=== PATIENT | female | born 1965 | race Two or more races ===

== ENCOUNTER 2018-05-11 22:23 | Emergency (ER) | payer SELFPAY ==
[~2018-05-11] VITALS: Ht 167.6 cm; Wt 81.6 kg
[2018-05-12] MEDS ORDERED: ONDANSETRON PF 4 MG/2 ML VIAL. IV ONE (00:30)
[2018-05-12] MEDS ORDERED: IV NORMAL SALINE 1000ML BAG 1,000 ML IV ONE (00:30)
[2018-05-12] MEDS ORDERED: KETOROLAC 30 MG/ML VIAL. IV ONE (00:30)
--- NOTE | 2018-05-12 00:47 | PHYS DOC ---
Adult General Chief Complaint Chief Complaint: ABDOMINAL PAIN HPI HPI Patient is a 52 year old female who presents with right upper quadrant tenderness and states that is started today. Patient earlier had corn tortillas with refried beans. Patient does have a history of a cholecystectomy. Patient also states this is exacerbated her headaches which she frequently has. Patient had one episode of vomiting upon arrival in the emergency Department denies any diarrhea. She also denies any chest pain or shortness of breath. Patient has no other acute complaints at this time. Review of Systems Review of Systems Constitutional: Denies fever or chills [] Eyes: Denies change in visual acuity, redness, or eye pain [] HENT: Denies nasal congestion or sore throat [] Respiratory: Denies cough or shortness of breath [] Cardiovascular: No additional information not addressed in HPI [] GI: Positive for abdominal pain, nausea, vomiting, denies bloody stools or diarrhea [] : Denies dysuria or hematuria [] Musculoskeletal: Denies back pain or joint pain [] Integument: Denies rash or skin lesions [] Neurologic: Ulcerative for headache, denies focal weakness or sensory changes [] Endocrine: Denies polyuria or polydipsia [] All other systems were reviewed and found to be within normal limits, except as documented in this note. Current Medications Current Medications Current Medications Medications (Trade) Dose Ordered Sig/Stacy Start Time Stop Time Status Last Admin Dose Admin Info (CONTRAST GIVEN -- Rx MONITORING) 1 each PRN DAILY PRN 05/12/18 03:00 05/14/18 02:59 Iohexol (Omnipaque 300 Mg/ml) 75 ml 1X ONCE 05/12/18 03:30 05/12/18 03:31 DC 05/12/18 03:09 75 ML Ketorolac Tromethamine (Toradol 30mg Vial) 30 mg 1X ONCE 05/12/18 00:30 05/12/18 00:31 DC 05/11/18 01:06 30 MG Ondansetron HCl (Zofran) 4 mg 1X ONCE 05/12/18 00:30 05/12/18 00:31 DC 05/12/18 01:05 4 MG Sodium Chloride 1,000 ml @ 1,000 mls/hr 1X ONCE 05/12/18 00:30 05/12/18 01:29 DC 05/12/18 00:40 1,000 MLS/HR Allergies Allergies Allergies Coded Allergies Type Severity Reaction Last Updated Verified morphine Allergy Intermediate 05/12/18 Yes Physical Exam Physical Exam Constitutional: Well developed, well nourished, mild to moderate distress, non- toxic appearance. [] HENT: Normocephalic, atraumatic, bilateral external ears normal, oropharynx moist, no oral exudates, nose normal. [] Eyes: PERRLA, EOMI, conjunctiva normal, no discharge. [] Neck: Normal range of motion, no tenderness, supple, no stridor. [] Cardiovascular:Heart rate regular rhythm, no murmur [] Lungs & Thorax: Bilateral breath sounds clear to auscultation [] Abdomen: Bowel sounds normal, soft, right upper quadrant tenderness, no masses, no pulsatile masses. [] Skin: Warm, dry, no erythema, no rash. [] Back: No tenderness, no CVA tenderness. [] Extremities: No tenderness, no cyanosis, no clubbing, ROM intact, no edema. [] Neurologic: Alert and oriented X 3, normal motor function, normal sensory function, no focal deficits noted. [] Psychologic: Affect normal, judgement normal, mood normal. [] Current Patient Data Lab Values Laboratory Tests Test 05/12/18 00:01 05/12/18 01:10 Urine Collection Type Unknown Urine Color Yellow Urine Clarity Clear Urine pH 6.5 Urine Specific [place] 1.010 Urine Protein Negative mg/dL (NEG-TRACE) Urine Glucose (UA) Negative mg/dL (NEG) Urine Ketones (Stick) Negative mg/dL (NEG) Urine Blood Negative (NEG) Urine Nitrite Negative (NEG) Urine Bilirubin Negative (NEG) Urine Urobilinogen Dipstick 0.2 mg/dL (0.2 mg/dL) Urine Leukocyte Esterase Small (NEG) Urine RBC 0 /HPF (0-2) Urine WBC 5-10 /HPF (0-4) Urine Squamous Epithelial Cells Few /LPF Urine Transitional Epithelial Cells Occ /LPF Urine Bacteria 0 /HPF (0-FEW) Urine Mucus Slight /LPF White Blood Count 8.2 x10^3/uL (4.0-11.0) Red Blood Count 4.51 x10^6/uL (3.50-5.40) Hemoglobin 13.1 g/dL (12.0-15.5) Hematocrit 38.8 % (36.0-47.0) Mean Corpuscular Volume 86 fL (79-100) Mean Corpuscular Hemoglobin 29 pg (25-35) Mean Corpuscular Hemoglobin Concent 34 g/dL (31-37) Red Cell Distribution Width 15.3 % (11.5-14.5) H Platelet Count 178 x10^3/uL (140-400) Neutrophils (%) (Auto) 68 % (31-73) Lymphocytes (%) (Auto) 18 % (24-48) L Monocytes (%) (Auto) 6 % (0-9) Eosinophils (%) (Auto) 7 % (0-3) H Basophils (%) (Auto) 1 % (0-3) Neutrophils # (Auto) 5.6 x10^3uL (1.8-7.7) Lymphocytes # (Auto) 1.5 x10^3/uL (1.0-4.8) Monocytes # (Auto) 0.5 x10^3/uL (0.0-1.1) Eosinophils # (Auto) 0.6 x10^3/uL (0.0-0.7) Basophils # (Auto) 0.0 x10^3/uL (0.0-0.2) Sodium Level 143 mmol/L (136-145) Potassium Level 3.7 mmol/L (3.5-5.1) Chloride Level 107 mmol/L (98-107) Carbon Dioxide Level 25 mmol/L (21-32) Anion Gap 11 (6-14) Blood Urea Nitrogen 12 mg/dL (7-20) Creatinine 0.7 mg/dL (0.6-1.0) Estimated GFR (Cockcroft-Gault) 87.9 BUN/Creatinine Ratio 17 (6-20) Glucose Level 128 mg/dL (70-99) H Calcium Level 8.9 mg/dL (8.5-10.1) Total Bilirubin 0.3 mg/dL (0.2-1.0) Aspartate Amino Transferase (AST) 13 U/L (15-37) L Alanine Aminotransferase (ALT) 23 U/L (14-59) Alkaline Phosphatase 67 U/L (46-116) Troponin I Quantitative < 0.017 ng/mL (0.000-0.055) Total Protein 6.9 g/dL (6.4-8.2) Albumin 3.8 g/dL (3.4-5.0) Albumin/Globulin Ratio 1.2 (1.0-1.7) Amylase Level 55 U/L (25-115) Lipase 167 U/L (73-393) Laboratory Tests 05/12/18 01:10 Laboratory Tests 05/12/18 01:10 EKG EKG Normal sinus rhythm at a rate of 56[] Radiology/Procedures Radiology/Procedures [facility] [address] [place] [address] IMAGING REPORT Signed PATIENT: JEWELL BRUSH ACCOUNT: [id number] : 1965 LOCATION: ER AGE: 52 SEX: F EXAM STATUS: REG ER ORD. PHYSICIAN: RAPHAEL SOLIS MD REASON: RUQ pain PROCEDURE: CT ABD PELV W/ IV CONTRST ONLY INDICATION: RUQ PAIN
75ML OMNI 300 COMPARISON: None. TECHNIQUE: Axial CT images obtained through the abdomen and pelvis with contrast. One or more of the following individualized dose reduction techniques were utilized for this examination: 1. Automated exposure control; 2. Adjustment of the mA and/or kV according to patient size; 3. Use of iterative reconstruction technique. FINDINGS: Multiple nodules at partially visualized lung bases. One of the larger 1's at the right lung base and is groundglass in nature measuring up to about 8-9 mm. There are some additional probable calcified granulomas as well as noncalcified more solid-appearing nodules. Abdominal aorta is not aneurysmal. Postcholecystectomy changes. No intrahepatic bile duct dilation. No peripancreatic fluid collection. Spleen unremarkable. No left-sided hydronephrosis. No right-sided hydronephrosis. Urinary bladder is partially distended. No definite periappendiceal inflammation. The appendix measures up to about 6 mm. IMPRESSION: 1. No evidence of bowel obstruction or appendicitis. 2. No hydronephrosis. 3. Multiple nodules at the lung bases with some of them appearing solid and others groundglass. Would obtain a short interval follow-up CT in 3 months to ensure no growth. It is also possible that the groundglass opacity at the right lung base is infectious or inflammatory etiology. Electronically signed by: Lino Santamaria MD (05/12/2018 3:52 AM) [facility] DICTATED and SIGNED BY: LINO SANTAMARIA MD DATE: 05/12/18 0341 [] Course & Med Decision Making Course & Med Decision Making Pertinent Labs and Imaging studies reviewed. (See chart for details) []And has been asleep in no acute distress and states that she feels rated go home at this time and will continue the workup as an outpatient. She reassessed again and has been sleeping quietly no acute distress. Results of CT were discussed and a copy was given to her with the understanding that she has to follow up for further evaluation and management Dragon Disclaimer Dragon Disclaimer This electronic medical record was generated, in whole or in part, using a voice recognition dictation system. Departure Departure Impression: Primary Impression: Abdominal pain Disposition: HOME, SELF-CARE Condition: IMPROVED Referrals: NO PCP (PCP) Patient Instructions: Abdominal Pain (Nonspecific) Additional Instructions: Please follow up with your primary care for further evaluation and follow-up on your CT scan results RAPHAEL SOLIS MD May 12, 2018 00:47
[2018-05-12 00:51] LABS: BILIRUBIN,URINE NEGATIVE (NEG); CLARITY,URINE CLEAR; COLOR,URINE YELLOW; NITRITE,URINE NEGATIVE (NEG); PH,URINE 6.5; PROTEIN,URINE NEGATIVE (NEG-TRACE); UROBILINOGEN,URINE 0.2 mg/dL (0.2 mg/dL)
[2018-05-12 01:01] LABS: BACTERIA,URINE 0 /HPF (0-FEW); RBC,URINE 0 /HPF (0-2)
[2018-05-12 01:02] LABS: SQUAMOUS EPITHELIAL CELL,UR FEW /LPF
[2018-05-12 01:20] LABS: BASO % 1 % (0-3); EOS # 0.6 x10^3/uL (0.0-0.7); EOS % 7 % (0-3); HEMATOCRIT 38.8 % (36.0-47.0); HEMOGLOBIN 13.1 g/dL (12.0-15.5); LYMPH # 1.5 x10^3/uL (1.0-4.8); LYMPH % 18 % (24-48); MEAN CORPUSCULAR HEMOGLOBIN 29 pg (25-35); MEAN CORPUSCULAR HGB CONC 34 g/dL (31-37); MEAN CORPUSCULAR VOLUME 86 fL (79-100); MONO # 0.5 x10^3/uL (0.0-1.1); MONO % 6 % (0-9); NEUT # 5.6 x10^3uL (1.8-7.7); NEUT % 68 % (31-73); PLATELET COUNT 178 x10^3/uL (140-400); RED BLOOD COUNT 4.51 x10^6/uL (3.50-5.40); RED CELL DISTRIBUTION WIDTH 15.3 % (11.5-14.5); WHITE BLOOD COUNT 8.2 x10^3/uL (4.0-11.0)
[2018-05-12 01:39] LABS: CALCIUM 8.9 mg/dL (8.5-10.1); CREATININE 0.7 mg/dL (0.6-1.0); GFR 87.9; POTASSIUM 3.7 mmol/L (3.5-5.1)
[2018-05-12 01:44] LABS: ALBUMIN 3.8 g/dL (3.4-5.0); ALBUMIN/GLOBULIN RATIO 1.2 (1.0-1.7); TOTAL BILIRUBIN 0.3 mg/dL (0.2-1.0); TOTAL PROTEIN 6.9 g/dL (6.4-8.2)
--- NOTE | 2018-05-12 02:05 | EKG ---
[facility] [address] [place] [address] Test Date: 2018-05-12 Test Time: 00:33:33 Pat Name: JEWELL BRUSH Department: Room: Gender: F [employer]: KELLY : 1965 Requested By: RAPHAEL SOLIS Order Number: [id number] Reading MD: Morgan Bianchi MD Measurements Intervals Plover Rate: 56 P: 22 AR: 132 QRS: 42 QRSD: 88 T: 27 QT: 404 QTc: 392 Interpretive Statements SINUS RHYTHM Electronically Signed On 05-12-2018 12:06:21 CDT by Morgan Bianchi MD
[2018-05-12] MEDS ORDERED: CONTRAST GIVEN. MC PRN (03:00)
[2018-05-12] MEDS ORDERED: IOHEXOL 300 MG/ML 100ML VIAL. IV ONE (03:30)
--- NOTE | 2018-05-12 03:55 | RAD ---
INDICATION: RUQ PAIN
75ML OMNI 300 COMPARISON: None. TECHNIQUE: Axial CT images obtained through the abdomen and pelvis with contrast. One or more of the following individualized dose reduction techniques were utilized for this examination: 1. Automated exposure control; 2. Adjustment of the mA and/or kV according to patient size; 3. Use of iterative reconstruction technique. FINDINGS: Multiple nodules at partially visualized lung bases. One of the larger 1's at the right lung base and is groundglass in nature measuring up to about 8-9 mm. There are some additional probable calcified granulomas as well as noncalcified more solid-appearing nodules. Abdominal aorta is not aneurysmal. Postcholecystectomy changes. No intrahepatic bile duct dilation. No peripancreatic fluid collection. Spleen unremarkable. No left-sided hydronephrosis. No right-sided hydronephrosis. Urinary bladder is partially distended. No definite periappendiceal inflammation. The appendix measures up to about 6 mm. IMPRESSION: 1. No evidence of bowel obstruction or appendicitis. 2. No hydronephrosis. 3. Multiple nodules at the lung bases with some of them appearing solid and others groundglass. Would obtain a short interval follow-up CT in 3 months to ensure no growth. It is also possible that the groundglass opacity at the right lung base is infectious or inflammatory etiology. Electronically signed by: Venu Santamaria MD (05/12/2018 3:52 AM) [facility]
[2018-05-12 05:35] VITALS: BP 141/87
--- NOTE | 2018-05-12 07:50 | RAD ---
Chest, 2 views, 05/12/2018: HISTORY: Chest and abdominal pain The heart size and pulmonary vascularity are normal. There are calcified granulomata in the lungs. No pulmonary infiltrate is seen. There is no evidence of pleural fluid. IMPRESSION: No acute cardiopulmonary abnormality is detected. Electronically signed by: Cruz Orozco MD (05/12/2018 7:47 AM) [facility]
== END 2018-05-12 00:45 | disposition home or self-care (01) ==
LOC: ER 22:23
DX: R10.11 Right upper quadrant pain (principal); R11.10 Vomiting, unspecified; R51 Headache; Z90.49 Acquired absence of other specified parts of digestive tract; Z88.5 Allergy status to narcotic agent
CPT/HCPCS: 36415; 71046; 74177; 80053; 81001; 82150; 83690; 84484; 85025; 93005; 96361; 96374; 96375; 99285; J1885; J2405; J7030; Q9967

== ENCOUNTER → 2018-07-24 | Outpatient (CLI) | payer OTHER ==
--- NOTE | 2018-07-24 17:26 | RAD ---
Examination: CT CHEST WO CONTRAST History: LUNG NODULE, NO PRIORS
Comparison/Correlation: Chest PA and lateral 05/12/2018, CT abdomen and pelvis with contrast 05/12/2018 Findings: Axial images of chest were obtained without contrast. Sagittal and coronal reformatted images were provided. The tracheobronchial tree is unremarkable. Calcified granulomas involve the lung wiley. Nodule along the posterior margin of the right major fissure inferiorly measuring 0.8 diameter is present and appears to represent a perifacial lymph node. Groundglass infiltrate at the lateral right mid to lower lung field is decreased compared to the prior exam and this is best seen on axial image 131. Small left costophrenic sulcus nodule is less evident than previously. No pneumothorax. Cholecystectomy is evident. Fluid is noted to distend the stomach. Bony structures are unremarkable. Impression: Notable decrease in right lateral basilar groundglass infiltrate. Continued interval follow-up in 4 months to assess for further resolution is recommended. No suspicious pulmonary nodules. Electronically signed by: Jose Elizabeth MD (07/24/2018 5:24 PM) [facility]
== END | disposition home or self-care (01) ==
LOC: EDBD 15:30 → CT 15:48
PROVIDERS: ATTEND Family Medicine
DX: J84.10 Pulmonary fibrosis, unspecified (principal)
CPT/HCPCS: 71250